=== PATIENT | male | born 1970 | race Caucasian/White ===

== ENCOUNTER → 2017-08-04 | Outpatient (CLI) | payer OTHER ==
[~2017-08-04] MED LIST: ALLO300T2 PO; ATEN-173 PO; MULT-506 PO
== END | disposition home or self-care (01) ==
LOC: C.LAB 00:16
DX: Z02.83 Encounter for blood-alcohol and blood-drug test (principal)

== ENCOUNTER 2018-04-11 09:16 | Emergency (ER) | payer OTHER ==
[~2018-04-11] VITALS: Ht 175.3 cm; Wt 78.5 kg
[2018-04-11 09:21] VITALS: TEMP 37.2; Ht 175.3 cm; Wt 78.5 kg
[2018-04-11] MEDS ORDERED: LIDOCAINE 1% BUFFERED INJ 20 ML VIAL INFIL ONE (09:45)
[2018-04-11] MEDS ORDERED: NRV/10 PO (10:29)
[2018-04-11] MEDS ORDERED: LISI-730 PO (10:29)
[2018-04-11 10:50] VITALS: BP 133/77; PULSE 66; O2SAT 99
--- NOTE | 2018-04-11 16:54 | EMERGENCY ROOM VISIT NOTE ---
ED Visit Note First contact with patient: 09:27 Chief Complaint: Cut my right forearm. History of Present Illness: Mr. Hernandez is a 47-year-old white male who ambulates into the ED complaining of a laceration on the lateral aspect of his right forearm. Patient reports she was at work today and accidentally cut his right forearm on a metal cutting blade. This event occurred approximately 1 hour prior to arrival at the hospital. Prior to arrival at the hospital he control bleeding but did not wash the wound. Currently he denies all associated symptoms with his laceration including pain, numbness/tingling around the laceration or arm weakness. Review of Systems: As noted above in history of present illness. Past Medical History: Hypertension, status post unspecified hernia repair and throat surgeries. Current Medications: Medications Dose Route/Sig Max Daily Dose Days Date Category Amlodipine Besylate 10 Mg Tab 10 Mg PO DAILY 04/11/18 Reported Lisinopril 5 Mg Tab 5 Mg PO DAILY 04/11/18 Reported Multivitamin (Multivitamins) Tab 1 Tab PO QAM 04/09/15 Reported Zyloprim (Allopurinol) 300 Mg Tab 300 Mg PO QAM 04/09/15 Reported Tenormin (Atenolol) 25 Mg Tab 25 Mg PO QAM 08/28/06 Reported Allergies to Medications: Patient denies. Social History: Patient is currently employed; he feels safe in his home environment; he admits to oral tobacco use. Tetanus Immunization Status: Patient reports up-to-date. Physical Examination: Vital Signs: Date Time Temp Pulse Resp B/P (MAP) Pulse Ox O2 Delivery O2 Flow Rate FiO2 04/11/18 10:50 66 18 133/77 99 04/11/18 09:21 37.2 69 18 145/83 97 Room Air GENERAL: 47-year-old male in no acute distress, nontoxic-appearing, afebrile and hemodynamically stable. NEUROLOGICAL: Awake, alert and oriented to person, place and time. Answering questions appropriately and following commands. Good hand eye coordination. SKIN: Warm, dry and pink. Left Forearm: Over the proximal lateral aspect of the forearm patient has a 3.9 cm full-thickness laceration. No active bleeding. LEFT UPPER EXTREMITY: Soft tissue injury as noted above under SKIN. No gross bony deformity. Full range of motion in flexion and extension of the elbow, pronation and supination of forearm, flexion, extension and radial and ulnar deviation of the wrist against resistance. All distal neurovascular statuses are intact and equal bilaterally ED Course: Patient is assessed as noted above. Patient's medication list was reviewed. Wound Repair: Complexity: Basic Verbal consent was obtained after the risks and benefits were explained. The skin was prepped with betadine and a sterile field set. Wound edges of the wound was anesthetized with 4.2 ml buffered 1% lidocaine. The wound was explored for foreign bodies and none found. Copious irrigation was performed using sterile saline. With direct pressure the bleeding subsided. Debridement was not performed. The wound edges were approximated using 4-0 Ethilon with 7 simple interrupted sutures. Hemostasis and excellent approximation was achieved. Antibacterial ointment and a sterile dressing applied. No complications and the patient tolerated the procedure well. Patient was educated about tonight's findings and instructed on his treatment plan; he verbalizes understanding and agreement with this plan. Clinical Impression: Laceration of the right forearm. Disposition: Patient discharged home in stable condition; prior to departure he was reassessed and subjectively reported he was still pain and symptom-free. Plan: Comfort measures, wound care, and signs of infection were discussed with the patient. Patient was encouraged to follow-up with Workmen's Compensation or return to the ED for signs of infection and/or suture removal in 10-12 days.
== END 2018-04-11 10:51 | disposition home or self-care (01) ==
LOC: C.EDB 09:17 → C.EDA 10:51
DX: S51.811A Laceration without foreign body of right forearm, initial encounter (principal); W45.8XXA Other foreign body or object entering through skin, initial encounter; Y92.89 Other specified places as the place of occurrence of the external cause; Y99.0 Civilian activity done for income or pay; I10 Essential (primary) hypertension; Z72.0 Tobacco use